=== PATIENT | female | born 1985 | race Caucasian/White ===

== ENCOUNTER → 2019-08-18 13:14 | Outpatient (BNVA) | payer MEDICAID, SELFPAY | PROVIDERS: Family Provider Counselor Professional; PCP Family Medicine; Visit Provider Psychiatry & Neurology Psychiatry | DX: F33.1 Major depressive disorder, recurrent, moderate (principal); F41.1 Generalized anxiety disorder | CPT/HCPCS: 99204 ==

== ENCOUNTER → 2019-09-14 09:47 | Outpatient (BNVA) | payer MEDICAID, SELFPAY | PROVIDERS: Family Provider Counselor Professional; PCP Family Medicine; Visit Provider Psychiatry & Neurology Psychiatry | DX: F41.1 Generalized anxiety disorder (principal); F33.1 Major depressive disorder, recurrent, moderate | CPT/HCPCS: 99213 ==

== ENCOUNTER → 2019-09-23 16:13 | Outpatient (BNVA) | payer MEDICAID, SELFPAY | PROVIDERS: Family Provider Counselor Professional; PCP Family Medicine; Visit Provider Registered Nurse | DX: Z79.899 Other long term (current) drug therapy (principal) | CPT/HCPCS: 80061; 83036 ==

== ENCOUNTER → 2019-10-13 12:26 | Outpatient (BNVA) | payer MEDICAID, SELFPAY | PROVIDERS: Family Provider Counselor Professional; PCP Family Medicine; Visit Provider Psychiatry & Neurology Psychiatry | DX: F43.12 Post-traumatic stress disorder, chronic (principal); F41.1 Generalized anxiety disorder; F33.1 Major depressive disorder, recurrent, moderate | CPT/HCPCS: 99213 ==

== ENCOUNTER → 2019-12-07 07:54 | Outpatient (BNVA) | payer MEDICAID, SELFPAY | PROVIDERS: Family Provider Counselor Professional; PCP Family Medicine; Visit Provider Psychiatry & Neurology Psychiatry | DX: F33.1 Major depressive disorder, recurrent, moderate (principal); F41.1 Generalized anxiety disorder; F43.12 Post-traumatic stress disorder, chronic | CPT/HCPCS: 99213 ==

== ENCOUNTER → 2020-02-01 14:04 | Outpatient (BNVA) | payer MEDICAID, SELFPAY ==
[2019-09-30 11:26] VITALS: BP 133/88; BMI 41.8
== END ==
PROVIDERS: Family Provider Counselor Professional; PCP Family Medicine; Visit Provider Counselor Professional
DX: F43.12 Post-traumatic stress disorder, chronic (principal); F41.1 Generalized anxiety disorder; F33.1 Major depressive disorder, recurrent, moderate
CPT/HCPCS: 90832

== ENCOUNTER → 2020-03-17 09:06 | Outpatient (BNVA) | payer MEDICAID, SELFPAY ==
[2019-09-30 11:26] VITALS: BP 133/88; BMI 41.8
== END ==
PROVIDERS: Family Provider Counselor Professional; PCP Family Medicine; Visit Provider Psychiatry & Neurology Psychiatry
DX: F33.1 Major depressive disorder, recurrent, moderate (principal); F41.1 Generalized anxiety disorder; F43.12 Post-traumatic stress disorder, chronic
CPT/HCPCS: 99213

== ENCOUNTER 2020-04-06 07:58 | Outpatient (CLI) | payer MEDICAID, SELFPAY ==
[2019-09-30 11:26] VITALS: BP 133/88; BMI 41.8
--- NOTE | 2020-04-06 08:45 | US_ITS ---
WS: [id number] ULTRASOUND PELVIS TECHNIQUE: Transabdominal and transvaginal. ULTRASOUND PELVIS TECHNIQUE: Transabdominal. CLINICAL INFORMATION: Abdominal pain, concern for PCOS LMP: March 30, 2020 : No. COMPARISON: None. FINDINGS: Uterus Orientation: Anteverted. Size: 8.94 cm x 5.6 cm x 4.3 cm. Masses: None. Cervix: Incidental nabothian cysts. Endometrium: Normal. Endometrium thickness: 0.6 cm. Adnexa: Multiple follicles both ovaries. Right ovary size: 2.4 cm x 2.0 cm x 1.3 cm. Right ovary volume: 3.5 ccm3. Left ovary size: 2.2 cm x 1.9 cm x 1.6 cm. Left ovary volume: 3.5 ccm3 Free fluid: None. Other findings: None. US/US pelvic with transvaginal IMPRESSION: 1. Normal uterus and endometrium. Endometrium measures 6.2 mm. 2. Multiple physiologic follicles both ovaries. Adnexa otherwise normal. 3. No free fluid in the cul-de-sac.
== END 2020-04-06 07:59 | disposition home or self-care (01) ==
LOC: US 07:59
PROVIDERS: PCP Family Medicine; Visit Provider Family Medicine
DX: R10.9 Unspecified abdominal pain (principal)
CPT/HCPCS: 76830; 76856

== ENCOUNTER → 2020-06-07 07:50 | Outpatient (BNVA) | payer MEDICAID, SELFPAY ==
[2019-09-30 11:26] VITALS: BP 133/88; BMI 41.8
== END ==
PROVIDERS: PCP Family Medicine; Visit Provider Psychiatry & Neurology Psychiatry
DX: F43.12 Post-traumatic stress disorder, chronic (principal); F41.1 Generalized anxiety disorder; F33.1 Major depressive disorder, recurrent, moderate
CPT/HCPCS: 99213

== ENCOUNTER → 2020-07-15 11:39 | Outpatient (BNVA) | payer MEDICAID, SELFPAY ==
[2019-09-30 11:26] VITALS: BP 133/88; BMI 41.8
== END ==
PROVIDERS: PCP Family Medicine; Visit Provider Family Medicine
DX: R32 Unspecified urinary incontinence (principal); N92.6 Irregular menstruation, unspecified; B37.3 Candidiasis of vulva and vagina; N39.3 Stress incontinence (female) (male); J06.9 Acute upper respiratory infection, unspecified
CPT/HCPCS: 81000; 81025

== ENCOUNTER → 2020-08-08 17:45 | Outpatient (BNVA) | payer MEDICAID, SELFPAY ==
[2019-09-30 11:26] VITALS: BP 133/88; BMI 41.8
== END ==
PROVIDERS: PCP Family Medicine; Visit Provider Family Medicine
DX: Z13.220 Encounter for screening for lipoid disorders (principal); M62.830 Muscle spasm of back; Z87.42 Personal history of other diseases of the female genital tract; I10 Essential (primary) hypertension; Z13.6 Encounter for screening for cardiovascular disorders; E28.2 Polycystic ovarian syndrome; R68.89 Other general symptoms and signs; Z20.2 Contact with and (suspected) exposure to infections with a predominantly sexual mode of transmission; E53.8 Deficiency of other specified B group vitamins; G43.709 Chronic migraine without aura, not intractable, without status migrainosus; Z68.41 Body mass index [BMI] 40.0-44.9, adult; R53.82 Chronic fatigue, unspecified; Z72.51 High risk heterosexual behavior
CPT/HCPCS: 80053; 80061; 82607; 82652; 84403; 84443; 85025; 86705; 86706; 87340; 87491; 87591; 87661; 87806

== ENCOUNTER → 2020-08-30 09:18 | Outpatient (BNVA) | payer MEDICAID, SELFPAY ==
[2019-09-30 11:26] VITALS: BP 133/88; BMI 41.8
== END ==
PROVIDERS: PCP Family Medicine; Visit Provider Psychiatry & Neurology Psychiatry
DX: F33.1 Major depressive disorder, recurrent, moderate (principal); F41.1 Generalized anxiety disorder; F43.12 Post-traumatic stress disorder, chronic
CPT/HCPCS: 99214

== ENCOUNTER → 2020-10-11 07:44 | Outpatient (BNVA) | payer MEDICAID, SELFPAY ==
[2019-09-30 11:26] VITALS: BP 133/88; BMI 41.8
== END ==
PROVIDERS: PCP Family Medicine; Visit Provider Psychiatry & Neurology Psychiatry
DX: F41.1 Generalized anxiety disorder (principal); F43.12 Post-traumatic stress disorder, chronic; F33.1 Major depressive disorder, recurrent, moderate
CPT/HCPCS: 99213

== ENCOUNTER → 2020-10-24 09:42 | Outpatient (BNVA) | payer MEDICAID, SELFPAY ==
[2019-09-30 11:26] VITALS: BP 133/88; BMI 41.8
== END ==
PROVIDERS: PCP Family Medicine; Visit Provider Family Medicine
DX: I10 Essential (primary) hypertension (principal); G43.709 Chronic migraine without aura, not intractable, without status migrainosus; E28.2 Polycystic ovarian syndrome; M62.830 Muscle spasm of back; M54.9 Dorsalgia, unspecified; G89.29 Other chronic pain; Z87.42 Personal history of other diseases of the female genital tract
CPT/HCPCS: 36415; 80061; 83036

== ENCOUNTER → 2021-01-26 10:43 | Outpatient (BNVA) | payer OTHER, SELFPAY ==
[2020-10-25 08:55] VITALS: BP 115/75; BMI 40.5
== END ==
PROVIDERS: PCP Family Medicine; Visit Provider Psychiatry & Neurology Psychiatry
DX: F43.12 Post-traumatic stress disorder, chronic (principal); F41.1 Generalized anxiety disorder; F33.1 Major depressive disorder, recurrent, moderate
CPT/HCPCS: 99213

== ENCOUNTER → 2021-04-25 10:58 | Outpatient (BNVA) | payer MEDICAID, SELFPAY ==
[2020-10-25 08:55] VITALS: BP 115/75; BMI 40.5
== END ==
PROVIDERS: PCP Family Medicine; Visit Provider Family Medicine
DX: N39.3 Stress incontinence (female) (male) (principal); Z12.4 Encounter for screening for malignant neoplasm of cervix
CPT/HCPCS: 81000; 87491; 87591; 87624; 87661

== ENCOUNTER → 2021-04-27 08:55 | Outpatient (BNVA) | payer OTHER, MEDICAID, SELFPAY ==
[2020-10-25 08:55] VITALS: BP 115/75; BMI 40.5
== END ==
PROVIDERS: PCP Family Medicine; Visit Provider Psychiatry & Neurology Psychiatry
DX: F43.12 Post-traumatic stress disorder, chronic (principal); F41.1 Generalized anxiety disorder; F33.1 Major depressive disorder, recurrent, moderate; M62.830 Muscle spasm of back; G43.709 Chronic migraine without aura, not intractable, without status migrainosus; I10 Essential (primary) hypertension
CPT/HCPCS: 99213

== ENCOUNTER → 2021-05-23 12:11 | Outpatient (BNVA) | payer OTHER, MEDICAID, SELFPAY ==
[2020-10-25 08:55] VITALS: BP 115/75; BMI 40.5
== END ==
PROVIDERS: PCP Family Medicine; Visit Provider Nurse Practitioner Family
DX: R32 Unspecified urinary incontinence (principal)
CPT/HCPCS: 87086

== ENCOUNTER → 2021-12-05 11:07 | Outpatient (BNVA) | payer MEDICAID, SELFPAY ==
[2020-10-25 08:55] VITALS: BP 115/75; BMI 40.5
== END ==
PROVIDERS: PCP Family Medicine; Visit Provider Family Medicine
DX: E28.2 Polycystic ovarian syndrome (principal); I10 Essential (primary) hypertension; Z13.220 Encounter for screening for lipoid disorders; Z13.6 Encounter for screening for cardiovascular disorders
CPT/HCPCS: 80053; 80061; 83001; 83002; 84403

== ENCOUNTER → 2022-04-03 10:34 | Outpatient (BNVA) | payer MEDICAID, SELFPAY ==
[2020-10-25 08:55] VITALS: BP 115/75; BMI 40.5
== END ==
PROVIDERS: PCP Family Medicine; Visit Provider Family Medicine
DX: R53.83 Other fatigue; I10 Essential (primary) hypertension; E28.2 Polycystic ovarian syndrome; R60.0 Localized edema; M25.50 Pain in unspecified joint; G89.29 Other chronic pain
CPT/HCPCS: 80053; 84443; 85651; 86140

== ENCOUNTER → 2022-04-19 10:47 | Outpatient (BNVA) | payer MEDICAID, SELFPAY ==
[2020-10-25 08:55] VITALS: BP 115/75; BMI 40.5
== END ==
PROVIDERS: PCP Family Medicine; Visit Provider Family Medicine
DX: G89.29 Other chronic pain (principal); M54.50 Low back pain, unspecified; M25.552 Pain in left hip; M25.50 Pain in unspecified joint; R70.0 Elevated erythrocyte sedimentation rate; R79.82 Elevated C-reactive protein (CRP); M25.852 Other specified joint disorders, left hip; M25.78 Osteophyte, vertebrae
CPT/HCPCS: 72100; 73502; 85025; 85651; 86038; 86140

== ENCOUNTER → 2022-09-07 10:20 | Outpatient (BNVA) | payer MEDICAID, SELFPAY ==
[2022-09-07 10:02] VITALS: BP 115/75; BMI 40.5
== END ==
PROVIDERS: PCP Family Medicine; Visit Provider Internal Medicine
DX: Z11.59 Encounter for screening for other viral diseases (principal); R70.0 Elevated erythrocyte sedimentation rate; M54.9 Dorsalgia, unspecified; G89.29 Other chronic pain; E53.8 Deficiency of other specified B group vitamins; R76.8 Other specified abnormal immunological findings in serum; M47.813 Spondylosis without myelopathy or radiculopathy, cervicothoracic region; M12.9 Arthropathy, unspecified
CPT/HCPCS: 72040; 72072; 73120; 80053; 82550; 82607; 82784; 83516; 83735; 84100; 85651; 86140; 86200; 86704; 86803; 87340

== ENCOUNTER → 2023-12-17 13:40 | Outpatient (BNVA) | payer MEDICAID, SELFPAY ==
[2023-08-22 08:58] VITALS: BP 115/75; BMI 40.5
== END ==
PROVIDERS: PCP Family Medicine; Visit Provider Internal Medicine Rheumatology
DX: R70.0 Elevated erythrocyte sedimentation rate (principal); R76.8 Other specified abnormal immunological findings in serum; M47.816 Spondylosis without myelopathy or radiculopathy, lumbar region; Z79.899 Other long term (current) drug therapy; Z98.890 Other specified postprocedural states
CPT/HCPCS: 36415; 72100; 80076; 82565; 85025; 85651; 86140